=== PATIENT | female | born 1985 | race Caucasian/White ===

== ENCOUNTER 2021-10-10 16:37 | Emergency (ER) | payer OTHER, SELFPAY ==
[2021-10-10 16:50] VITALS: BP 155/97; PULSE 92; RESP 20; TEMP 37; O2SAT 99
--- NOTE | 2021-10-10 17:41 | DI.US.S_ITS ---
PROCEDURE: US AXILLARY ONLY INDICATIONS: LYMPHADENOPATHY VS ABSCESS, HX DIABETES TECHNIQUE: Real-time focused scanning was performed of the right axilla, with image documentation. COMPARISON: None. FINDINGS: A 1.5 x 1.7 x 1.5 cm heterogeneously hypoechoic lesion is seen in the subcutaneous tissues abutting the undersurface of the dermis at the palpable area of interest in the right axilla. No internal blood flow is seen. Surrounding subcutaneous soft tissue edema is present. IMPRESSION: Subcutaneous fluid collection in the right axilla measuring 1.5 x 1.7 x 1.5 cm is suspicious for abscess or inflamed sebaceous cyst. Surrounding soft tissue edema or cellulitis is present. Dictated by: Krishna Olvera M.D. on 10/10/2021 at 18:51 Approved by: Krishna Olvera M.D. on 10/10/2021 at 18:53
--- NOTE | 2021-10-10 17:42 | ED.SKABFB ---
HPI - Skin/Abscess/Foreign Bdy <JARRED Forte - Last Filed: 10/10/21 19:48> General Chief complaint: Skin/Abscess/Foreign Body Stated complaint: Cyst/Abcess in Rt Arm Pit Time Seen by Provider: 10/10/21 17:08 Source: patient Mode of arrival: Ambulatory History of Present Illness HPI narrative: 36-year-old female with history of type 2 diabetes on insulin who presents to the emergency department with chief complaint of right axilla swelling with concern for abscess versus is swollen lymph node since 5 days ago. Patient states that she has a history of abscesses in gets them in her groin but she also has a history of lymphadenopathy any time she gets sick. Patient states she had COVID in August, she also received her Pneumovax in August, she denies any recent illness, fever, rash, drainage, open wound, surrounding redness but she feels like it is swollen in her right axilla around the lump. She states it is about 2.5 cm, round, firm, non mobile and tender to Touch. Patient endorses mild nausea, she states that her right axilla feels warm to her, but denies subjective fever, she denies any vomiting, states her blood sugars have been under control recently. patient states her tetanus is up-to-date. Related Data Previous Rx's Medication Instructions Recorded doxycycline hyclate 100 mg capsule 100 mg PO BID 7 Days #14 cap 10/10/21 Review of Systems <JARRED Forte - Last Filed: 10/10/21 19:48> Review of Systems Narrative: General: denies fever, chills, malaise, sweats, fatigue Head/Neck: denies headache, neck pain, dizziness Eyes: denies visual changes, eye pain Cardio: denies chest pain, palpitations, edema Respiratory: denies dyspnea, cough, orthopnea GI: denies abdominal pain, nausea, vomiting, or diarrhea : denies dysuria, hematuria, urinary retention, frequency or incontinence MSK: denies joint pain, muscle weakness Skin: denies rash, itching, endorses lump in her right axilla which is tender to the touch and swollen Neuro: denies numbness, tingling Patient History <JARRED Forte - Last Filed: 10/10/21 19:48> Social History Smoking Status: Never smoker Smoking Status: Never smoker Exam <JARRED Forte - Last Filed: 10/10/21 19:48> Narrative Exam Narrative: Independently reviewed vitals signs and nursing notes. General: Cooperative, comfortable, in no acute distress, well developed and well groomed Head/Neck: Normal visual inspection and supple, atraumatic, mild anterior cervical lymphadenopathy less than 1 cm, Normal facial exam Eyes: Pupils equal round and reactive, EOMI, conjunctiva normal, no scleral icterus or injections Nose: External nose normal, nares patent, no rhinorrhea, without purulent drainage Mouth/Throat: uvula midline, moist mucus membranes Cardio: Regular rate and rhythm, no peripheral edema, warm extremities Respiratory: Normal respiratory effort, able to speak in complete sentences without audible wheezing, stridor, or rales. No retractions. GI: Abdomen soft, nontender to palpation x4 quadrants, nondistended, no masses or exquisite tenderness with exam, no flank tenderness MSK: Moves all extremities, neurovascularly intact Skin: Normal capillary refill, no rash, right axilla with approximate 2 in by 2 in firm non mobile lump, no fluctuance, no erythema, mild edema associated in right axilla without any skin changes Neuro: Normal speech and cognition, normal gait, A&O x3, tone normal, moves all extremities Psych: Mental status is grossly normal, speech is clear, congruent mood, normal affect Initial Vital Signs Initial Vital Signs: Vital Signs Temperature 98.6 F 10/10/21 16:50 Pulse Rate 92 H 10/10/21 16:50 Respiratory Rate 20 10/10/21 16:50 Blood Pressure 155/97 H 10/10/21 16:50 Pulse Oximetry 99 10/10/21 16:50 <Anjali Marino DO - Last Filed: 10/16/21 08:19> Initial Vital Signs Initial Vital Signs: Vital Signs Temperature 98.6 F 10/10/21 16:50 Pulse Rate 92 H 10/10/21 16:50 Respiratory Rate 20 10/10/21 16:50 Blood Pressure 155/97 H 10/10/21 16:50 Pulse Oximetry 99 10/10/21 16:50 Course <Yamila Jerez, [facility] - Last Filed: 10/10/21 19:48> Orders Ordered: Discontinued Medications Doxycycline Hyclate (Doxycycline Hyclate 100 Mg Tablet) 100 mg PO NOW ONE Stop: 10/10/21 18:54 Last Admin: 10/10/21 19:01 Dose: 100 mg Documented by: PEGGY Ketorolac Tromethamine (Ketorolac 30 Mg/Ml Vial) 15 mg IM NOW ONE Stop: 10/10/21 18:36 Last Admin: 10/10/21 18:37 Dose: 15 mg Documented by: PEGGY Lidocaine/Sodium Bicarbonate (Lido 1%/Sod Bicarb 8.4% (10ml) 10 Ml Syringe) 10 ml INJ NOW ONE Stop: 10/10/21 18:21 Last Admin: 10/10/21 18:33 Dose: 10 ml Documented by: PEGGY Vital Signs Vital signs: Vital Signs - 8 hr 10/10/21 16:50 10/10/21 19:00 Temperature 98.6 F Pulse Rate 92 H 70 Respiratory Rate 20 18 Blood Pressure 155/97 H 136/92 H Pulse Oximetry 99 99 <Anjali Marino DO - Last Filed: 10/16/21 08:19> Orders Ordered: Discontinued Medications Doxycycline Hyclate (Doxycycline Hyclate 100 Mg Tablet) 100 mg PO NOW ONE Stop: 10/10/21 18:54 Last Admin: 10/10/21 19:01 Dose: 100 mg Documented by: PEGGY Ketorolac Tromethamine (Ketorolac 30 Mg/Ml Vial) 15 mg IM NOW ONE Stop: 10/10/21 18:36 Last Admin: 10/10/21 18:37 Dose: 15 mg Documented by: PEGGY Lidocaine/Sodium Bicarbonate (Lido 1%/Sod Bicarb 8.4% (10ml) 10 Ml Syringe) 10 ml INJ NOW ONE Stop: 10/10/21 18:21 Last Admin: 10/10/21 18:33 Dose: 10 ml Documented by: PEGGY Vital Signs Vital signs: Vital Signs - 8 hr 10/10/21 16:50 10/10/21 19:00 Temperature 98.6 F Pulse Rate 92 H 70 Respiratory Rate 20 18 Blood Pressure 155/97 H 136/92 H Pulse Oximetry 99 99 MDM - Skin/Abscess/Foreign Bdy <Yamila Jerez, [facility] - Last Filed: 10/10/21 19:48> Imaging Data US axilla: Radiologist's Impression: PROCEDURE:? US AXILLARY ONLY ? INDICATIONS:? LYMPHADENOPATHY VS ABSCESS, HX DIABETES ? TECHNIQUE:? Real-time focused scanning was performed of the right axilla, with image documentation.? ? COMPARISON:? None. ? FINDINGS:? A 1.5 x 1.7 x 1.5 cm heterogeneously hypoechoic lesion is seen in the subcutaneous tissues abutting the undersurface of the dermis at the palpable area of interest in the right axilla.? No internal blood flow is seen.? Surrounding subcutaneous soft tissue edema is present. ? IMPRESSION:? Subcutaneous fluid collection in the right axilla measuring 1.5 x 1.7 x 1.5 cm is suspicious for abscess or inflamed sebaceous cyst.? Surrounding soft tissue edema or cellulitis is present. ? ? ? Dictated by: Krishna Olvera M.D. on 10/10/2021 at 18:51 ? ? Approved by: Krishna Olvera M.D. on 10/10/2021 at 18:53? MDM Narrative Medical decision making narrative: 36-year-old female with type 2 diabetes on insulin who presents to the emergency department complaining of tender mass in right axilla which has been there for approximately 5 days and is becoming more tender and painful. Patient has a history of abscesses which may be associated with hydradenitis suppurativa because she has these in her armpits groin buttocks in the past. Right axilla ultrasound was obtained for differentiation between abscess/lymphadenopathy. Patient does have mild anterior cervical lymphadenopathy, no known illness, or associated URI symptoms. Patient has been afebrile. Right axillary ultrasound shows subcutaneous fluid collection in the right axilla measuring 1.5 x 1.7 x 1.5 cm suspicious for abscess or inflamed sebaceous cyst. There is soft tissue surrounding edema and cellulitis. Incision and drainage was completed after local anesthesia with 1% lidocaine with buffered sodium bicarb using an 18 gauge needle and 3 mL of purulent drainage was aspirated and sent for culture. A stab incision was also made using a 11. Blade, an another aspect of the abscess but did not produce any additional purulent drainage. There was some serosanguineous fluid which was expressed which may be from assist. Patient was given doxycycline for a 7 day course to cover for MRSA cyst as she has a history of abscesses in the past. Patient has a follow-up appointment scheduled in 4 days and she states that she will follow-up accordingly. Patient is appropriate and amenable to discharge home. Vital signs are stable on repeat examination is unremarkable. Patient has been informed of results. Patient has been given strict return to ER precautions for any new or worsening symptoms. Patient understands to follow up closely with outpatient providers as instructed. Patient understands plan and agrees to discharge home. All questions and concerns answered at this time. Discharge Plan Departure Patient Disposition: Home Clinical Impression: Abscess of axilla, right, Cellulitis Instructions: DI for Cellulitis -- Adult, DI for Skin Abscess Activity Restrictions/Additional Instructions: *You have been diagnosed with a right axilla abscess. Take your antibiotics twice a day for the next 7 days, follow-up at your primary care office on as scheduled. If you have any worsening redness, streaking, fever, please be evaluated again before your appointment. This should start to go down in the next 24-48 hours. I am giving you an antibiotic which will cover you for MRSA. He can continue to express some of the drainage that is coming out with warm compresses. Please take ibuprofen and Tylenol as needed for your pain. Please closely monitor your blood sugar over the next couple of days and adjust your insulin as necessary. The ultrasound noted that this may be an inflamed sebaceous cyst so this is possible to refill. If your infection has not fully gone away at the end of the 7 days, please ask your primary care provider for an extension of your antibiotic. *What to do: *Please continue to take your regular medications as directed. [x] New medication prescriptions sent to your pharmacy: [facility] ] [ ] New medication written as a paper prescription [ ] No new medications given *Please follow up with your primary care provider in 2-3 days, call for an appointment. Let them know you were seen in the Emergency Department and that we ask that you be seen in follow up. We will electronically transmit a record of today's note if your PCP is in our system *If you do not have a primary care provider please contact the [facility] Resource line at [phone]. They will ask some questions about your medical history and help get you set up with a doctor in the community. *Return to Emergency Department if you should have any new, worsening or concerning symptoms, such as [fever greater than 101F, chills, worsening pain, persistent vomiting or other bothersome symptoms] Prescriptions: New doxycycline hyclate 100 mg capsule 100 mg PO BID 7 Days Qty: 14 0RF <Anjali Marino DO - Last Filed: 10/16/21 08:19> Cosign ED Attending Cosignature Attestation: I was immediately available in the department for consultation. Documentation has been reviewed.
[2021-10-10] MEDS: LIDO 1%/SOD BICARB 8.4% (10ML) 10 ML SYRINGE INJ (18:33)
[2021-10-10] MEDS: KETOROLAC 30 MG/ML VIAL 15 MG IM (18:37)
[2021-10-10 19:00] VITALS: BP 136/92; PULSE 70; RESP 18; O2SAT 99
[2021-10-10] MEDS: DOXYCYCLINE HYCLATE 100 MG TABLET PO (19:01)
== END 2021-10-10 19:20 | disposition home or self-care (01) ==
PROVIDERS: Emergency Provider Nurse Practitioner Critical Care Medicine
DX: L03.111 Cellulitis of right axilla (principal); L02.411 Cutaneous abscess of right axilla
CPT/HCPCS: 10060; 76882; 87070; 87075; 87077; 87147; 87186; 87205; 96372; 99283; 99284; J1885

== ENCOUNTER 2022-01-06 17:35 | Emergency (ER) | payer OTHER, SELFPAY ==
[2022-01-06 17:45] VITALS: BP 124/85; PULSE 81; RESP 15; TEMP 36.2; O2SAT 99; BMI 30.7
--- NOTE | 2022-01-06 19:59 | ED_ITS ---
HPI - Back Pain/Injury <JARRED Forte - Last Filed: 01/06/22 20:04> General Chief Complaint: Back Pain/Injury Stated Complaint: back pain radiating up neck to head Time Seen by Provider: 01/06/22 19:44 Source: patient History of Present Illness HPI Narrative: This is a 36-year-old female who presents to the emergency department complaining of exacerbation of her chronic back pain during a twisting movement today. Patient states she is having muscle spasms along the left side of her back from her hip up to her neck. She denies any weakness, numbness or tingling sensation in her extremities she states that she was getting clothes out of the drier feeder with this happened and over the course of the day started having worsening muscle spasms on the left side of her back. Patient denies any dysuria, flank pain, fever, illness nausea, vomiting. She states she took Motrin earlier today. Related Data Previous Rx's Medication Instructions Recorded acetaminophen 650 mg 650 mg PO Q8H PRN #14 tab 01/06/22 tablet,extended release (Tylenol 8 Hour) diclofenac sodium 3 % topical gel 1 applic TOPICAL BID PRN #100 g 01/06/22 methocarbamol 500 mg tablet 500 mg PO TID PRN #14 tab 01/06/22 Allergies Allergy/AdvReac Type Severity Reaction Status Date / Time diphenhydramine Allergy Verified 01/06/22 17:45 [From Darline] Review of Systems <JARRED Forte - Last Filed: 01/06/22 20:04> Review of Systems Narrative: General: denies fever, chills, malaise, sweats, fatigue Head/Neck: denies headache, neck pain, dizziness Eyes: denies visual changes, eye pain Cardio: denies chest pain, palpitations, edema Respiratory: denies dyspnea, cough, orthopnea GI: denies abdominal pain, nausea, vomiting, or diarrhea : denies dysuria, hematuria, urinary retention, frequency or incontinence, endorses history of tubal ligation MSK: denies joint pain, muscle weakness, denies paraspinal pain, endorses left- sided low back pain with radiation up the left side to her shoulder and neck Skin: denies rash, itching, skin lesions or other Neuro: denies numbness, tingling Patient History <JARRED Forte - Last Filed: 01/06/22 20:04> Social History Smoking Status: Never smoker Smoking Status: Never smoker alcohol intake frequency: holidays/special occasions only Substance Use Type: does not use Exam <JARRED Forte - Last Filed: 01/06/22 20:04> Narrative Exam Narrative: Independently reviewed vitals signs and nursing notes. General: cooperative, comfortable, in no acute distress, well groomed Head: atraumatic, symmetrical facial expressions Neck: supple Eyes: equal round and reactive, EOMI, conjunctiva normal Nose: nares patent, no rhinorrhea Mouth/Throat: moist mucus membranes Cardiovascular: regular rate and rhythm, no peripheral edema, warm extremities Respiratory: normal effort, able to speak in complete sentences, no audible wheezing, stridor, or rales. No retractions or tachypnea. GI: abdomen soft, nontender to palpation, nondistended, no masses, no exquisite tenderness with exam, without guarding or rebound. MSK: moves all extremities, neurovascularly intact, no weakness, normal tone Skin: brisk capillary refill, no rash, no erythema Neuro: normal speech and cognition, A&O x3 Psych: mental status is grossly normal, congruent mood, normal affect, pleasant and cooperative Initial Vital Signs Initial Vital Signs: Vital Signs Temperature 97.2 F L 01/06/22 17:45 Pulse Rate 81 01/06/22 17:45 Respiratory Rate 15 01/06/22 17:45 Blood Pressure 124/85 01/06/22 17:45 Pulse Oximetry 99 01/06/22 17:45 <Anjali Marino DO - Last Filed: 01/13/22 07:47> Initial Vital Signs Initial Vital Signs: Vital Signs Temperature 97.2 F L 01/06/22 17:45 Pulse Rate 81 01/06/22 17:45 Respiratory Rate 15 01/06/22 17:45 Blood Pressure 124/85 01/06/22 17:45 Pulse Oximetry 99 01/06/22 17:45 Course <JARRED Forte - Last Filed: 01/06/22 20:04> Orders Ordered: Discontinued Medications Ketorolac Tromethamine (Ketorolac 30 Mg/Ml Vial) 15 mg IM NOW ONE Stop: 01/06/22 19:53 Last Admin: 01/06/22 20:06 Dose: 15 mg Documented by: KATI Lidocaine (Lidocaine Patch 1 Each Adh..Patch) 1 each TOP NOW ONE Stop: 01/06/22 19:53 Last Admin: 01/06/22 20:06 Dose: 1 each Documented by: KATI Methocarbamol (Methocarbamol 500 Mg Tablet) 500 mg PO NOW ONE Stop: 01/06/22 19:53 Last Admin: 01/06/22 20:06 Dose: 500 mg Documented by: KATI Vital Signs Vital signs: Vital Signs - 8 hr 01/06/22 17:45 Temperature 97.2 F L Pulse Rate 81 Respiratory Rate 15 Blood Pressure 124/85 Pulse Oximetry 99 <Anjali Marino DO - Last Filed: 01/13/22 07:47> Orders Ordered: Discontinued Medications Ketorolac Tromethamine (Ketorolac 30 Mg/Ml Vial) 15 mg IM NOW ONE Stop: 01/06/22 19:53 Last Admin: 01/06/22 20:06 Dose: 15 mg Documented by: KATI Lidocaine (Lidocaine Patch 1 Each Adh..Patch) 1 each TOP NOW ONE Stop: 01/06/22 19:53 Last Admin: 01/06/22 20:06 Dose: 1 each Documented by: KATI Methocarbamol (Methocarbamol 500 Mg Tablet) 500 mg PO NOW ONE Stop: 01/06/22 19:53 Last Admin: 01/06/22 20:06 Dose: 500 mg Documented by: KATI Vital Signs Vital signs: Vital Signs - 8 hr 01/06/22 17:45 Temperature 97.2 F L Pulse Rate 81 Respiratory Rate 15 Blood Pressure 124/85 Pulse Oximetry 99 MDM - Back Pain/Injury <JARRED Forte - Last Filed: 01/06/22 20:04> MDM Narrative Medical decision making narrative: This is a 36-year-old female who is otherwise well, presents to the emergency department complaining of acute exacerbation of her chronic low back pain during a twisting motion getting clothes out of the drier feeder today. She states that over the course of the day she has had worsening left-sided back pain which is muscle spasms from her hip up to her left shoulder and neck. She states that she wears her hands and request a work note to take work off tomorrow. She denies any weakness, sensation changes, shortness of breath, chest pain, or flank pain. Patient denies any trauma, states she took Motrin earlier today. In the emergency department she was given methocarbamol, Toradol, and lidocaine patch. She still has lidocaine patches at home, she was prescribed Tylenol q.8 hours, diclofenac topical gel, and methocarbamol intact. She is recommended to continue treating her pain with Tylenol, ibuprofen, heat, ice, rest, massage, gentle activity and was given a work note. Multiple etiologies of back pain considered including; Epidural abscess, cauda equina, mass occupying lesion, lumbar fracture, intra-abdominal pathology chronic neuropathic pain and other considered Patient is appropriate and amenable to discharge home. Vital signs are stable on repeat examination is unremarkable. Patient has been informed of results. Patient has been given strict return to ER precautions for any new or worsening symptoms. Patient understands to follow up closely with outpatient providers as instructed. Patient understands plan and agrees to discharge home. All questions and concerns answered at this time. Discharge Plan Departure Patient Disposition: Home Clinical Impression: Muscle strain Acute back pain Qualifiers: Back pain location: low back pain Back pain laterality: unspecified Sciatica presence: without sciatica Qualified Code(s): M54.50 - Low back pain, unspecified Instructions: Muscle Strain, DI for Back Spasm Activity Restrictions/Additional Instructions: *You have been diagnosed with muscle spasm and pain from reaggravating your chronic back injury. Please use the methocarbamol as needed for muscle spasms, you can put a lidocaine patch over your pain, do not take any additional ibuprofen today, you may take ibuprofen starting tomorrow, with food and water. Please use heat, gentle activity, ice if it is helpful, and massage to help this calm down. I hope it is starts feeling better soon. Try taking Tylenol and ibuprofen every 6 hours together, you can take a muscle relaxer as needed for breakthrough muscle spasms. This will make you tired, please do not drive with the muscle relaxer. *What to do: *Please continue to take your regular medications as directed. [ x] New medication prescriptions sent to your pharmacy: [[facility] ] [ ] New medication written as a paper prescription [ ] No new medications given *Please follow up with your primary care provider in 2-3 days, call for an appointment. Let them know you were seen in the Emergency Department and that we asked that you be seen for follow-up. We will electronically transmit a record of today's note if your PCP is in our system *If you do not have a primary care provider please contact [phone] to establish care with one of the [facility] primary care providers. *Return to Emergency Department if you should have any new, worsening or concerning symptoms, such as [fever greater than 101F, chills, worsening pain, persistent vomiting or other bothersome symptoms] Prescriptions: New methocarbamol 500 mg tablet 500 mg PO TID PRN (Reason: muscle spasm) Qty: 14 0RF diclofenac sodium 3 % gel 1 applic topical BID PRN (Reason: pain) Qty: 100 0RF Rx Instructions: Please apply to area of pain 3 times of the day as needed. acetaminophen [Tylenol 8 Hour] 650 mg tablet extended release 650 mg PO Q8H PRN (Reason: pain) Qty: 14 0RF Stand Alone Forms: Work Release Note <Anjali Marino DO - Last Filed: 01/13/22 07:47> Cosign ED Attending Cosjuarezature Attestation: I was immediately available in the department for consultation. Documentation has been reviewed.
[2022-01-06] MEDS: LIDOCAINE PATCH 1 EACH ADH..PATCH TOP (20:06)
[2022-01-06] MEDS: KETOROLAC 30 MG/ML VIAL 15 MG IM (20:06)
[2022-01-06] MEDS: methocarbamoL 500 MG TABLET PO (20:06)
[2022-01-06 20:24] VITALS: BP 137/91; PULSE 82; RESP 16; O2SAT 98
== END 2022-01-06 20:25 | disposition home or self-care (01) ==
PROVIDERS: Emergency Provider Nurse Practitioner Critical Care Medicine
DX: S39.012A Strain of muscle, fascia and tendon of lower back, initial encounter (principal); X50.1XXA Overexertion from prolonged static or awkward postures, initial encounter
CPT/HCPCS: 96372; 99283; J1885

== ENCOUNTER 2025-05-09 12:20 | Emergency (ER) | payer OTHER, SELFPAY ==
[2025-05-09 12:30] VITALS: BP 139/76; PULSE 98; RESP 20; TEMP 36.9; O2SAT 100; BMI 30.7
--- NOTE | 2025-05-09 15:03 | ED.SKABFB ---
HPI - Skin/Abscess/Foreign Bdy <Melodie García PA-C - Last Filed: 05/09/25 19:28> General Chief complaint: Skin/Abscess/Foreign Body Stated complaint: cysts- feeling exhausted, headache runny nose Time Seen by Provider: 05/09/25 14:01 Source: patient Mode of arrival: Ambulatory History of Present Illness HPI narrative: Ms. Tellez is a very pleasant 39-year-old female with a past medical history of hidradenitis suppurativa who presents to the emergency department for left axilla ?cyst? x2 days, now also with sinus congestion, runny nose, headache and fatigue. Patient states she has a history of HS, affecting the groin and the axilla, has had to have abscesses drained in the past. Two days ago she noticed a small red spot that has gotten larger and she actually was able to get significant amount of drainage out of it yesterday but today it is no longer draining. The skin overlying this area has become more red which made her concerned for the need for antibiotics. She also woke up this morning with sinus congestion, runny nose, headache and fatigue. Denies fevers, chills, nausea, vomiting, allergy to antibiotics. 2021 she did have a wound culture that grew staph aureus and was resistant to clindamycin and erythromycin. Related Data Previous Rx's ?Medication ?Instructions ?Recorded acetaminophen 650 mg 650 mg PO Q8H PRN pain #14 tabs 01/06/22 tablet,extended release (Tylenol 8 Hour) diclofenac sodium 3 % topical gel 1 applic topical BID PRN pain #100 01/06/22 grams methocarbamol 500 mg tablet 500 mg PO TID PRN muscle spasm #14 01/06/22 tabs doxycycline hyclate 100 mg capsule 100 mg PO BID 7 days #14 caps 05/09/25 Allergies Allergy/AdvReac Type Severity Reaction Status Date / Time diphenhydramine (From Allergy Verified 05/09/25 12:31 Benadryl) Review of Systems <Melodie García PA-C - Last Filed: 05/09/25 19:28> Review of Systems ROS Unobtainable: All systems reviewed & are unremarkable except as noted in HPI and below Patient History <Melodie García PA-C - Last Filed: 05/09/25 19:28> Social History Smoking Status: Never smoker Smoking Status: Never smoker alcohol intake frequency: holidays/special occasions only Exam <Melodie García PA-C - Last Filed: 05/09/25 19:28> Narrative Exam Narrative: GENERAL: 39 year old patient appears stated age. Well-developed patient, in no acute distress. HEAD: Atraumatic. Normocephalic. EYES: Extraocular motions intact. No scleral icterus. No injection or drainage. ENT: Nose with BL congestion, sinus pressure. NECK: Trachea midline. Cervical ROM intact. CARDIOVASCULAR: Regular rate and rhythm. RESPIRATORY: ?Nonlabored respirations. ?Speaking in clear, full sentences. ?Clear to auscultation. Breath sounds equal bilaterally. No wheezes, rales, or rhonchi. ? EXTREMITIES: No LE edema. NEURO: AOx3. ?Clear speech. ?Moves all 4 extremities appropriately. SKIN: In the left axilla, there is proximally 3 cm region of circumferential erythema with palpable fullness/induration and central scabbing. No fluctuance or active drainage. No streaking erythema. Initial Vital Signs Initial Vital Signs: Vital Signs Temperature 98.4 F 05/09/25 12:30 Pulse Rate 98 H 05/09/25 12:30 Respiratory Rate 20 05/09/25 12:30 Blood Pressure 139/76 05/09/25 12:30 Pulse Oximetry 100 05/09/25 12:30 Oxygen Delivery Method Room Air 05/09/25 12:30 <Gay Elizabeth MD - Last Filed: 05/09/25 23:58> Initial Vital Signs Initial Vital Signs: Vital Signs Temperature 98.4 F 05/09/25 12:30 Pulse Rate 98 H 05/09/25 12:30 Respiratory Rate 20 05/09/25 12:30 Blood Pressure 139/76 05/09/25 12:30 Pulse Oximetry 100 05/09/25 12:30 Oxygen Delivery Method Room Air 05/09/25 12:30 Procedures <Melodie García PA-C - Last Filed: 05/09/25 19:28> Abscess I/D I&D #1: Time of procedure: 16:00 Site: upper extremity (axilla) Side (if applicable): left Sedation/analgesia: none Local Anesthetic: lidocaine 1% and with epi Amount of anesthesia used (mL): 2 Technique: needle aspiration Amount of fluid expressed (mL): 1 Irrigation: Yes Packing used?: none Course <Melodie García PA-C - Last Filed: 05/09/25 19:28> Orders Ordered: Discontinued Medications Bacitracin (Bacitracin Oint 0.9 Gm Pckt) 3 applic TOP NOW ONE Stop: 05/09/25 15:46 Doxycycline Hyclate (Doxycycline Hyclate 100 Mg Tablet) 100 mg PO NOW ONE Stop: 05/09/25 15:11 Last Admin: 05/09/25 15:20 Dose: 100 mg Documented By: Ketorolac Tromethamine (Ketorolac 30 Mg/Ml Vial) 30 mg IM NOW ONE Stop: 05/09/25 15:11 Last Admin: 05/09/25 15:20 Dose: 30 mg Documented By: Vital Signs Vital signs: Vital Signs - 8 hr 05/09/25 16:16 Temperature 98.4 F Pulse Rate 68 Respiratory Rate 18 Blood Pressure 128/87 Pulse Oximetry 98 Oxygen Delivery Method Room Air <Gay Elizabeth MD - Last Filed: 05/09/25 23:58> Orders Ordered: Discontinued Medications Bacitracin (Bacitracin Oint 0.9 Gm Pckt) 3 applic TOP NOW ONE Stop: 05/09/25 15:46 Doxycycline Hyclate (Doxycycline Hyclate 100 Mg Tablet) 100 mg PO NOW ONE Stop: 05/09/25 15:11 Last Admin: 05/09/25 15:20 Dose: 100 mg Documented By: Ketorolac Tromethamine (Ketorolac 30 Mg/Ml Vial) 30 mg IM NOW ONE Stop: 05/09/25 15:11 Last Admin: 05/09/25 15:20 Dose: 30 mg Documented By: Vital Signs Vital signs: Vital Signs - 8 hr 05/09/25 16:16 Temperature 98.4 F Pulse Rate 68 Respiratory Rate 18 Blood Pressure 128/87 Pulse Oximetry 98 Oxygen Delivery Method Room Air MDM - Skin/Abscess/Foreign Bdy <Melodie García PA-C - Last Filed: 05/09/25 19:28> Medical Records Attestation: I reviewed the patient's medical records. MDM Narrative Medical decision making narrative: 39-year-old female with a past medical history of hidradenitis suppurativa who presents to the emergency department for left axilla ?cyst? x2 days, now also with sinus congestion, runny nose, headache and fatigue. Differential diagnosis includes but is not limited to HS flare, abscess, cellulitis, lymphadenopathy, URI, viral URI, etc. On exam patient is in no acute distress, nontoxic appearing, vital signs appropriate, mildly elevated heart rate in triage. She has a small area of erythema and induration in the left axilla consistent with cellulitis/abscess, she did already have a lot of drainage at home and I am not feeling much fluctuance now however after shared decision-making with the patient, we will proceed with needle aspiration. She is also experiencing upper respiratory infection symptoms starting today which can be contributing to her fatigue. We will treat discomfort with Toradol, initiate antibiotics. Left axillary abscess needle aspiration performed with less than 1 cc of purulent drainage, patient tolerated the procedure well, recommended doxycycline b.i.d. x7 days, advised proper wound care, Hibiclens washes, strict ER return precautions, ibuprofen and Tylenol. Advised follow up with Dermatology. Patient verbalized understanding of all information and is agreeable with the plan, she is stable for discharge home. Discharge Plan Departure Patient Disposition: Home Clinical Impression: Cutaneous abscess of left axilla URI (upper respiratory infection) Qualifiers: URI type: unspecified viral URI Qualified Code(s): J06.9 - Acute upper respiratory infection, unspecified Instructions: DI for Skin Abscess Activity Restrictions/Additional Instructions: Dear Ms. Tellez, Thank you for coming to the emergency department. Today you were evaluated for an infection in the left underarm. We used needle aspiration to create an opening and help drain this area. It is very important to complete the full 7 days of oral antibiotics. Please keep this wound clean and covered. You may use warm compresses and Epsom salt soaks to help with drainage. Please clean the area at least 1-2 times daily with Hibiclens wash provided. Please use ibuprofen and Tylenol to help with the pain and fevers. Please take Ibuprofen (Motrin/Advil) or Acetaminophen (Tylenol) for pain. These are available over the counter. You may take Ibuprofen 600 mg every 8 hours with food for pain. You may also take Acetaminophen 650 mg every 4-6 hours for pain. Do not exceed 3000 mg of Tylenol a day as this can cause liver damage. Do not drink alcohol with either of these medications. Please return to the emergency department if you have new worsening or persistent symptoms, increased redness spreading on the arm or chest wall or any other concerns. Please follow up with your primary care doctor within the next 2-3 days for ER follow-up. (If you do not have a PCP you can call [phone]. ?to schedule an appointment with an [facility] Primary Care Provider) IF YOU DEVELOP ANY NEW OR WORSENING SYMPTOMS, RETURN TO THE ER! Please read the attached instructions, they highlight more specific treatments and interventions for you at home. Thank you for letting me participate in your care, Melodie García PA-C Prescriptions: New doxycycline hyclate 100 mg capsule 100 mg PO BID 7 Days Qty: 14 0RF No Action methocarbamol 500 mg tablet 500 mg PO TID PRN (Reason: muscle spasm) Qty: 14 0RF diclofenac sodium 3 % gel 1 applic topical BID PRN (Reason: pain) Qty: 100 0RF Rx Instructions: Please apply to area of pain 3 times of the day as needed. acetaminophen [Tylenol 8 Hour] 650 mg tablet extended release 650 mg PO Q8H PRN (Reason: pain) Qty: 14 0RF Stand Alone Forms: Patient Portal/API, Work Release Note ED Sign-out <Gay Elizabeth MD - Last Filed: 05/09/25 23:58> [facility]: I was immediately available in the department for consultation throughout this patient's visit. Gay Elizabeth MD
[2025-05-09] MEDS: KETOROLAC 30 MG/ML VIAL IM (15:20)
[2025-05-09] MEDS: DOXYCYCLINE HYCLATE 100 MG TABLET PO (15:20)
[2025-05-09 16:16] VITALS: BP 128/87; PULSE 68; RESP 18; TEMP 36.9; O2SAT 98
== END 2025-05-09 16:17 | disposition home or self-care (01) ==
PROVIDERS: Emergency Provider Physician Assistant
DX: L02.412 Cutaneous abscess of left axilla (principal); J06.9 Acute upper respiratory infection, unspecified
CPT/HCPCS: 10060; 96372; 99283; J1885